=== PATIENT | male | born 1990 | race Caucasian/White ===

== ENCOUNTER 2016-12-28 21:14 | Emergency (ER) | payer OTHER ==
[2016-12-28] MEDS ORDERED: EPINEPHrine 1 MG/ML AMP ONE (21:24)
[2016-12-28] MEDS ORDERED: diphenhydrAMINE 50 MG/ML VIAL ONE (21:26)
[2016-12-28] MEDS ORDERED: Albuterol Sulfate 2.5 mg/0.5 ml Neb ONE (21:30)
[2016-12-28] MEDS ORDERED: Albuterol Sulfate 1.25 MG/3 ML NEB ONE (21:30)
[2016-12-28] MEDS ORDERED: methylPREDNISolone Sod Succ/PF 125 MG/2 ML VIAL ONE (21:31)
[2016-12-28] MEDS ORDERED: Famotidine/PF 20 mg/2ml Vial ONE (21:31)
== END 2016-12-28 23:33 | disposition home or self-care (01) ==
LOC: ERS 21:14
DX: T63.421A Toxic effect of venom of ants, accidental (unintentional), initial encounter (principal); T78.2XXA Anaphylactic shock, unspecified, initial encounter; F32.9 Major depressive disorder, single episode, unspecified
CPT/HCPCS: 94640; 96361; 96372; 96374; 96375; J0171; J1200; J2930; J7611; S0028

== ENCOUNTER 2017-11-22 00:24 | Emergency (ER) | payer OTHER ==
[2017-11-22] MEDS ORDERED: Ketorolac Tromethamine 60 MG/2 ML VIAL ONE (01:02)
[2017-11-22] MEDS ORDERED: Cyclobenzaprine 10 MG TAB ONE (01:02)
[2017-11-22] MEDS ORDERED: Cyclobenzaprine 10 MG TAB PO SCH (01:15)
[2017-11-22] MEDS ORDERED: Ketorolac Tromethamine 60 MG/2 ML VIAL IM SCH (01:15)
[2017-11-22] MEDS ORDERED: Dexamethasone 10 MG/ML VIAL ONE (02:43)
[2017-11-22] MEDS ORDERED: traMADol HCl 50 MG TAB ONE (02:43)
--- NOTE | 2017-11-22 08:58 | RAD ---
LUMBAR SPINE 3 VIEWS: Date: 11/22/17 HISTORY: 27-year-old male with history of bilateral low back pain after lifting weights. FINDINGS: Disc spaces are adequately preserved. No fracture, dislocation, malalignment, or other acute process. IMPRESSION: No acute process. POS: [facility]
== END 2017-11-22 03:15 | disposition home or self-care (01) ==
LOC: ERS 00:24
DX: S39.012A Strain of muscle, fascia and tendon of lower back, initial encounter (principal); Z79.899 Other long term (current) drug therapy; X50.1XXA Overexertion from prolonged static or awkward postures, initial encounter
CPT/HCPCS: 72100; 96372; J1100; J1885